=== PATIENT | female | born 1945 | race African-American/Black ===

== ENCOUNTER 2018-04-12 21:33 | Inpatient (IN) | payer MEDICARE, MEDICAID ==
[~2018-04-12] VITALS: Ht 165.1 cm; Wt 147.0 kg
[2018-04-12] MEDS ORDERED: HYDRALAZINE 20MG/ML VIAL IV ONE (23:00)
[2018-04-13] VITALS (80 sets, daily range): BP systolic 100–252; BP diastolic 47–147
[2018-04-13 00:14] LABS: BASOPHILS % 0.4 % (0.0-2.0); HEMATOCRIT. 38.1 % (36.0-48.0); HEMOGLOBIN. 12.4 g/dL (12.0-16.0); MEAN CORPUSCULAR HEMOGLOBIN 26.2 pg (28.0-32.0); MEAN CORPUSCULAR VOLUME 80.8 fL (81.0-99.0); MEAN PLATELET VOLUME 11.2 fl (7.4-10.4); MONOCYTES % 7.3 % (2.0-8.0); NEUTROPHILS % 62.3 % (40.0-76.0); PLATELET 230 x1000/uL (130-400); RED BLOOD CELL COUNT 4.71 mill/uL (4.2-5.4)
[2018-04-13 00:19] LABS: CHLORIDE 112 mEq/L (98-107)
[2018-04-13 00:30] LABS: PARTIAL THROMBOPLASTIN TIME 24.5 sec (23.4-31.0); PROTHROMBIN TIME 9.9 sec (9.1-11.1)
[2018-04-13] MEDS ORDERED: HYDRALAZINE 20MG/ML VIAL IV ONE (00:45)
[2018-04-13] MEDS ORDERED: ASPIRIN 81MG TABLET PO ONE (01:15)
[2018-04-13] MEDS ORDERED: NITROGLYCERIN 50MG PREMIX 250 ML IV ONE (01:45)
[2018-04-13] MEDS ORDERED: NITROGLYCERIN 50MG PREMIX 250 ML IV PRN (06:00)
[2018-04-13 06:03] LABS: BASOPHILS % 0.3 % (0.0-2.0); EOSINOPHILS % 0.2 % (0.0-5.0); HEMATOCRIT. 36.2 % (36.0-48.0); HEMOGLOBIN. 11.8 g/dL (12.0-16.0); LYMPHOCYTES % 15.6 % (20.0-50.0); MEAN CORPUSCULAR VOLUME 80.1 fL (81.0-99.0); MONOCYTES % 5.1 % (2.0-8.0); NEUTROPHILS % 78.8 % (40.0-76.0); PLATELET 199 x1000/uL (130-400); RED BLOOD CELL COUNT 4.52 mill/uL (4.2-5.4); RED CELL DISTRIBUTION WIDTH 15.5 % (11.6-14.6)
[2018-04-13] MEDS ORDERED: POTA15TA11 PO (06:34)
[2018-04-13] MEDS ORDERED: HYDR-4135 PO (06:34)
[2018-04-13] MEDS ORDERED: NIFE90TA34 MT (06:34)
[2018-04-13] MEDS ORDERED: DOCU-272 PO (06:34)
[2018-04-13] MEDS ORDERED: ATOR40TA70 MT (06:34)
[2018-04-13] MEDS ORDERED: VITA1CAP PO (06:34)
[2018-04-13] MEDS ORDERED: LOSA100T14 MT (06:34)
[2018-04-13] MEDS ORDERED: CARV6.2548 MT (06:34)
[2018-04-13] MEDS ORDERED: ASPI-1159 MT (06:34)
[2018-04-13] MEDS ORDERED: BUSP10TA3 PO (06:34)
[2018-04-13] MEDS ORDERED: FURO40TA5 PO (06:34)
[2018-04-13] MEDS: HYDRALAZINE 20MG/ML VIAL IV PRN (07:15)
[2018-04-13] MEDS: NICARDIPINE 40MG/200ML PREMIX 200 ML IV PRN ×4 (07:44→22:19)
[2018-04-13] MEDS ORDERED: ONDANSETRON HCL 4MG/2ML VIAL IV PRN (07:45)
[2018-04-13] MEDS ORDERED: LIDOCAINE HCL 1% 20ML VIAL (Pyxis) INJ ONE (07:54)
[2018-04-13] MEDS ORDERED: SODIUM BICARBONATE 4% (2.4MEQ) 5ML VIAL IV ONE (07:55)
[2018-04-13] MEDS: ASPIRIN 325MG TABLET PO SCH (09:00)
[2018-04-13 10:36] LABS: T4 FREE 0.99 ng/dL (0.76-1.46)
[2018-04-13] MEDS ORDERED: LIDOCAINE HCL/PF 1% 2ML VIAL ONE (13:45)
[2018-04-13 14:27] LABS: BG BASE EXCESS -4.5 mmol/L (-2.0-2.0); BG CARBOXYHEMOGLOBIN 1.1 % (0.5-1.5); BG DEOXYHEMOGLOBIN 5.3 % (0.0-5.0); BG HCO3 ACT 19.7 mmol/L (22.0-26.0); BG METHEMOGLOBIN 0.3 % (0.0-1.5); BG OXYGEN SATURATION 94.6 % (92.0-98.5); BG OXYHEMOGLOBIN 93.3 % (94.0-97.0); BG PCO2 33.6 mmHg (35.0-45.0); BG PH 7.387 (7.350-7.450); BG PO2 74.1 mmHg (75.0-100.0); BG SAMPLE SITE RIGHT RADIAL; BG TOTAL HEMOGLOBIN 12.3 g/dL (12.0-18.0); BG VENT MODE NASAL CANNULA
[2018-04-13] MEDS: ENOXAPARIN 40MG/0.4ML SYR SUBCUT SCH (20:46)
[2018-04-13] MEDS: ATORVASTATIN CALCIUM 40MG TABLET PO SCH (20:46)
[2018-04-14] VITALS (64 sets, daily range): BP systolic 99–187; BP diastolic 56–98
[2018-04-14 00:33] LABS: CREATINE KINASE MB FRACTION 3.3 ng/mL (0.5-3.6)
[2018-04-14] MEDS: NICARDIPINE 40MG/200ML PREMIX 200 ML IV PRN ×3 (02:29→21:09)
[2018-04-14 05:42] LABS: BASOPHILS % 0.4 % (0.0-2.0); EOSINOPHILS % 0.5 % (0.0-5.0); HEMATOCRIT. 35.7 % (36.0-48.0); HEMOGLOBIN. 11.4 g/dL (12.0-16.0); LYMPHOCYTES % 19.7 % (20.0-50.0); MEAN CORPUSCULAR HEMOGLOBIN 25.8 pg (28.0-32.0); MEAN CORPUSCULAR VOLUME 80.7 fL (81.0-99.0); MEAN PLATELET VOLUME 11.2 fl (7.4-10.4); NEUTROPHILS % 71.4 % (40.0-76.0); PLATELET 189 x1000/uL (130-400); RED BLOOD CELL COUNT 4.43 mill/uL (4.2-5.4); RED CELL DISTRIBUTION WIDTH 15.4 % (11.6-14.6)
[2018-04-14 06:16] LABS: CHLORIDE 115 mEq/L (98-107)
[2018-04-14 06:30] LABS: CREATINE KINASE 427 IU/L (26-192); LDL CHOLESTEROL 137 mg/dL (5-100)
[2018-04-14 06:31] LABS: HDL CHOLESTEROL 60 mg/dL (40-59)
[2018-04-14 06:34] LABS: CREATINE KINASE MB FRACTION 3.6 ng/mL (0.5-3.6)
[2018-04-14] MEDS ORDERED: POTASSIUM CHLORIDE INJ 40 MEQ in DEXT 5% WATER 250 ML IV ONE (08:00)
[2018-04-14] MEDS: ENOXAPARIN 40MG/0.4ML SYR SUBCUT SCH ×2 (09:16→21:08)
[2018-04-14] MEDS: ASPIRIN 325MG TABLET PO SCH (09:16)
[2018-04-14] MEDS ORDERED: OMEPRAZOLE 20MG CAPSULE EXTENDED RELEASE PO SCH (10:00)
[2018-04-14] MEDS: KCL 20MEQ/100ML PREMIX 100 ML IV SCH ×2 (11:27→11:38)
[2018-04-14] MEDS: LANSOPRAZOLE 30MG DR CAPSULE GT SCH (11:37)
[2018-04-14] MEDS: HYDRALAZINE 20MG/ML VIAL IV PRN (16:39)
[2018-04-14] MEDS: HYDRALAZINE HCL 50MG TABLET NG SCH (21:09)
[2018-04-14] MEDS: ATORVASTATIN CALCIUM 40MG TABLET PO SCH (21:24)
[2018-04-15] VITALS (89 sets, daily range): BP systolic 114–186; BP diastolic 46–99
[2018-04-15] MEDS: HYDRALAZINE 20MG/ML VIAL IV PRN ×2 (02:29→21:22)
[2018-04-15] MEDS: NICARDIPINE 40MG/200ML PREMIX 200 ML IV PRN ×4 (02:32→21:25)
[2018-04-15 05:29] LABS: BASOPHILS % 0.6 % (0.0-2.0); EOSINOPHILS % 0.6 % (0.0-5.0); HEMATOCRIT. 36.1 % (36.0-48.0); HEMOGLOBIN. 11.5 g/dL (12.0-16.0); LYMPHOCYTES % 19.6 % (20.0-50.0); MEAN CORPUSCULAR HEMOGLOBIN 26.2 pg (28.0-32.0); MEAN CORPUSCULAR VOLUME 82.2 fL (81.0-99.0); MONOCYTES % 6.9 % (2.0-8.0); NEUTROPHILS % 72.3 % (40.0-76.0); RED BLOOD CELL COUNT 4.39 mill/uL (4.2-5.4); RED CELL DISTRIBUTION WIDTH 15.5 % (11.6-14.6)
[2018-04-15 05:32] LABS: CHLORIDE 119 mEq/L (98-107)
[2018-04-15] MEDS: HYDRALAZINE HCL 50MG TABLET NG SCH (05:44)
[2018-04-15] MEDS: ASPIRIN 325MG TABLET PO SCH (08:16)
[2018-04-15] MEDS: LANSOPRAZOLE 30MG DR CAPSULE GT SCH (08:16)
[2018-04-15] MEDS: ENOXAPARIN 40MG/0.4ML SYR SUBCUT SCH (08:16)
[2018-04-15] MEDS ORDERED: GADOBENATE DIMEGLUMINE 529 MG/ML 10ML IV ONE (09:27)
[2018-04-15 10:57] LABS: MEAN PLATELET VOLUME 11.6 fl (7.4-10.4); PLATELET 174 x1000/uL (130-400)
[2018-04-15] MEDS: CLONIDINE 0.1MG TABLET PO SCH ×2 (11:13→21:22)
[2018-04-15 12:54] LABS: CLARITY URINE CLOUDY (CLEAR); COLOR URINE YELLOW (YELLOW); KETONES URINE NEGATIVE (NEGATIVE); LEUKOCYTE ESTERASE URINE 1+ (NEGATIVE); NITRITE URINE NEGATIVE (NEGATIVE); OCCULT BLOOD URINE 2+ (NEGATIVE); PROTEIN URINE 4+ (NEGATIVE); SPECIFIC GRAVITY URINE 1.022 (1.005-1.030)
[2018-04-15] MEDS: HYDRALAZINE HCL 100MG TABLET NG SCH ×2 (13:19→21:22)
[2018-04-15] MEDS ORDERED: BISACODYL 10MG SUPP PR NR (18:09)
[2018-04-15] MEDS ORDERED: BISACODYL 10MG SUPP PR PRN (18:15)
[2018-04-15] MEDS: PANTOPRAZOLE SODIUM 40 MG/VIAL IV SCH (21:21)
[2018-04-15] MEDS: ATORVASTATIN CALCIUM 40MG TABLET PO SCH (21:21)
[2018-04-16] VITALS (103 sets, daily range): BP systolic 119–202; BP diastolic 30–131
[2018-04-16] MEDS: HYDRALAZINE 20MG/ML VIAL IV PRN (03:28)
[2018-04-16] MEDS: NICARDIPINE 40MG/200ML PREMIX 200 ML IV PRN ×3 (04:46→14:25)
[2018-04-16 05:41] LABS: BASOPHILS % 0.5 % (0.0-2.0); EOSINOPHILS % 0.4 % (0.0-5.0); HEMATOCRIT. 34.8 % (36.0-48.0); HEMOGLOBIN. 11.2 g/dL (12.0-16.0); LYMPHOCYTES % 23.4 % (20.0-50.0); MEAN CORPUSCULAR HEMOGLOBIN 25.9 pg (28.0-32.0); MEAN CORPUSCULAR VOLUME 80.8 fL (81.0-99.0); MEAN PLATELET VOLUME 11.5 fl (7.4-10.4); MONOCYTES % 8.5 % (2.0-8.0); NEUTROPHILS % 67.2 % (40.0-76.0); PLATELET 185 x1000/uL (130-400); RED BLOOD CELL COUNT 4.31 mill/uL (4.2-5.4); RED CELL DISTRIBUTION WIDTH 15.5 % (11.6-14.6)
[2018-04-16] MEDS: HYDRALAZINE HCL 100MG TABLET NG SCH ×3 (05:59→22:35)
[2018-04-16 06:46] LABS: PARTIAL THROMBOPLASTIN TIME 27.5 sec (23.4-31.0); PROTHROMBIN TIME 10.4 sec (9.1-11.1)
[2018-04-16] MEDS ORDERED: LEVOFLOXACIN 500MG PREMIX 100 ML IV NR (08:00)
[2018-04-16] MEDS: PANTOPRAZOLE SODIUM 40 MG/VIAL IV SCH ×2 (08:11→21:42)
[2018-04-16] MEDS: CLONIDINE 0.1MG TABLET PO SCH (08:12)
[2018-04-16] MEDS ORDERED: BISACODYL 10MG SUPP PR NR (09:00)
[2018-04-16] MEDS ORDERED: INSULIN LISPRO 100 UNITS/ML SUBCUT SCH (09:15)
[2018-04-16] MEDS ORDERED: BLOOD SUGAR DIAGNOSTIC STRIP TEST SCH (09:15)
[2018-04-16] MEDS ORDERED: DEXTROSE 50% WATER 50ML SYRINGE IV PRN (09:15)
[2018-04-16] MEDS: DEXTROSE 5% WATER 1,000 ML IV SCH (10:30)
[2018-04-16] MEDS: BLOOD SUGAR DIAGNOSTIC STRIP TEST SCH ×2 (12:00→18:26)
[2018-04-16] MEDS: INSULIN LISPRO 100 UNITS/ML SUBCUT SCH ×2 (12:00→18:00)
[2018-04-16] MEDS ORDERED: MIDAZOLAM HCL 5 MG/5 ML VIAL ONE (12:05)
[2018-04-16] MEDS ORDERED: FENTANYL CITRATE/PF 50MCG/ML 2ML VIAL ONE (12:06)
[2018-04-16] MEDS ORDERED: FLUCONAZOLE 100MG/50ML PREMIX IV ONE (12:45)
[2018-04-16] MEDS ORDERED: ENOXAPARIN 40MG/0.4ML SYR SUBCUT NR (13:15)
[2018-04-16] MEDS: CEFTRIAXONE 1 G PREMIX 50 ML IV SCH (14:25)
[2018-04-16] MEDS ORDERED: FLUCONAZOLE 100MG/50ML in BAG IV NR (15:00)
[2018-04-16] MEDS: CLONIDINE 0.2MG TABLET PO SCH (21:30)
[2018-04-16] MEDS: ATORVASTATIN CALCIUM 40MG TABLET PO SCH (21:30)
[2018-04-17] VITALS (94 sets, daily range): BP systolic 116–191; BP diastolic 35–131
[2018-04-17] MEDS: BLOOD SUGAR DIAGNOSTIC STRIP TEST SCH ×5 (00:30→23:47)
[2018-04-17] MEDS: INSULIN LISPRO 100 UNITS/ML SUBCUT SCH ×4 (00:34→17:02)
[2018-04-17] MEDS: DEXTROSE 5% WATER 1,000 ML IV SCH ×2 (02:01→17:31)
[2018-04-17] MEDS: HYDRALAZINE HCL 100MG TABLET NG SCH ×3 (06:59→21:48)
[2018-04-17 07:53] LABS: BASOPHILS % 0.5 % (0.0-2.0); EOSINOPHILS % 0.8 % (0.0-5.0); HEMATOCRIT. 33.7 % (36.0-48.0); HEMOGLOBIN. 10.9 g/dL (12.0-16.0); LYMPHOCYTES % 18.2 % (20.0-50.0); MEAN CORPUSCULAR HEMOGLOBIN 26.1 pg (28.0-32.0); MEAN CORPUSCULAR VOLUME 80.9 fL (81.0-99.0); MEAN PLATELET VOLUME 11.5 fl (7.4-10.4); MONOCYTES % 8.4 % (2.0-8.0); NEUTROPHILS % 72.1 % (40.0-76.0); PLATELET 178 x1000/uL (130-400); RED BLOOD CELL COUNT 4.17 mill/uL (4.2-5.4); RED CELL DISTRIBUTION WIDTH 15.4 % (11.6-14.6)
[2018-04-17] MEDS: CLONIDINE 0.2MG TABLET PO SCH ×2 (08:21→08:35)
[2018-04-17] MEDS: LOSARTAN POTASSIUM 25 MG TABLET PO SCH (08:51)
[2018-04-17] MEDS: AMLODIPINE 10MG TABLET PO SCH (08:51)
[2018-04-17] MEDS: CLONIDINE 0.1MG TABLET PO SCH ×2 (08:51→21:03)
[2018-04-17] MEDS ORDERED: SODIUM CHLORIDE 0.9% 10ML VIAL ONE (11:43)
[2018-04-17] MEDS ORDERED: LEVOFLOXACIN 500MG PREMIX 100 ML IV SCH (12:00)
[2018-04-17] MEDS: NICARDIPINE 40MG/200ML PREMIX 200 ML IV PRN ×3 (12:18→22:55)
[2018-04-17] MEDS: CEFTRIAXONE 1 G PREMIX 50 ML IV SCH (13:27)
[2018-04-17] MEDS ORDERED: FENTANYL CITRATE/PF 50MCG/ML 2ML VIAL ONE (13:31)
[2018-04-17] MEDS ORDERED: MIDAZOLAM HCL 5 MG/5 ML VIAL ONE (13:31)
[2018-04-17] MEDS ORDERED: MIDAZOLAM HCL 5 MG/5 ML VIAL IV PRN (14:28)
[2018-04-17] MEDS ORDERED: FENTANYL CITRATE/PF 50MCG/ML 2ML VIAL IV PRN (14:29)
[2018-04-17] MEDS: HYDROMORPHONE HCL/PF 2MG/ML CPJ IV PRN ×2 (16:28→20:31)
[2018-04-17] MEDS: HYDRALAZINE 20MG/ML VIAL IV PRN (18:26)
[2018-04-17] MEDS: ATORVASTATIN CALCIUM 40MG TABLET PO SCH (21:03)
[2018-04-17] MEDS ORDERED: HYDROMORPHONE HCL/PF 2MG/ML CPJ IV PRN (21:45)
[2018-04-18] VITALS (65 sets, daily range): BP systolic 132–201; BP diastolic 43–158
[2018-04-18] MEDS: NICARDIPINE 40MG/200ML PREMIX 200 ML IV PRN ×2 (03:48→21:23)
[2018-04-18] MEDS: BLOOD SUGAR DIAGNOSTIC STRIP TEST SCH ×4 (05:25→23:34)
[2018-04-18] MEDS: HYDRALAZINE HCL 100MG TABLET NG SCH ×3 (05:26→21:19)
[2018-04-18 05:50] LABS: PARTIAL THROMBOPLASTIN TIME 21.3 sec (23.4-31.0); PROTHROMBIN TIME 10.1 sec (9.1-11.1)
[2018-04-18] MEDS: INSULIN LISPRO 100 UNITS/ML SUBCUT SCH ×5 (06:00→23:34)
[2018-04-18] MEDS: AMLODIPINE 10MG TABLET PO SCH (09:00)
[2018-04-18] MEDS: CLONIDINE 0.1MG TABLET PO SCH (09:00)
[2018-04-18] MEDS: LOSARTAN POTASSIUM 25 MG TABLET PO SCH (09:00)
[2018-04-18 10:45] LABS: BASOPHILS % 0.3 % (0.0-2.0); EOSINOPHILS % 0.7 % (0.0-5.0); HEMATOCRIT. 34.6 % (36.0-48.0); HEMOGLOBIN. 11.3 g/dL (12.0-16.0); LYMPHOCYTES % 14.2 % (20.0-50.0); MEAN CORPUSCULAR HEMOGLOBIN 26.5 pg (28.0-32.0); MEAN CORPUSCULAR VOLUME 80.7 fL (81.0-99.0); MEAN PLATELET VOLUME 11.7 fl (7.4-10.4); MONOCYTES % 6.5 % (2.0-8.0); NEUTROPHILS % 78.3 % (40.0-76.0); PLATELET 165 x1000/uL (130-400); RED BLOOD CELL COUNT 4.28 mill/uL (4.2-5.4); RED CELL DISTRIBUTION WIDTH 15.5 % (11.6-14.6)
[2018-04-18] MEDS ORDERED: PAPAVERINE HCL 30 MG/ML 2ML IV ONE (11:49)
[2018-04-18] MEDS ORDERED: THROMBIN (BOVINE) 5000 UNITS/VIAL TOP ONE (11:50)
[2018-04-18] MEDS ORDERED: BACITRACIN ZINC 15GM TUBE TOP ONE (11:50)
[2018-04-18] MEDS ORDERED: BUPIVACAINE HCL/PF 0.5% (5MG/ML) 10ML ONE (11:50)
[2018-04-18] MEDS ORDERED: HEPARIN SODIUM 1,000 UNIT/1ML VIAL IV ONE (11:50)
[2018-04-18] MEDS ORDERED: NORMAL SALINE 0.9% 10 ML SYR ONE (11:50)
[2018-04-18] MEDS ORDERED: LIDOCAINE HCL/PF 1% 10 MG/ML 5ML VIAL ONE (11:51)
[2018-04-18] MEDS ORDERED: BACITRACIN 50,000 UNITS/VIAL ONE (11:51)
[2018-04-18] MEDS ORDERED: GELATIN SPONGE,COMPRESSED SZ 100 ONE (11:51)
[2018-04-18] MEDS: DEXTROSE 5% WATER 1,000 ML IV SCH (12:00)
[2018-04-18] MEDS: CEFTRIAXONE 1 G PREMIX 50 ML IV SCH (17:35)
[2018-04-18] MEDS: ATORVASTATIN CALCIUM 40MG TABLET PO SCH (21:19)
[2018-04-19] VITALS (61 sets, daily range): BP systolic 131–195; BP diastolic 44–137
[2018-04-19] MEDS: NICARDIPINE 40MG/200ML PREMIX 200 ML IV PRN ×3 (01:59→10:45)
[2018-04-19] MEDS: DEXTROSE 5% WATER 1,000 ML IV SCH (06:07)
[2018-04-19] MEDS: BLOOD SUGAR DIAGNOSTIC STRIP TEST SCH ×3 (06:24→18:00)
[2018-04-19] MEDS: INSULIN LISPRO 100 UNITS/ML SUBCUT SCH ×3 (06:38→18:00)
[2018-04-19] MEDS: HYDRALAZINE HCL 100MG TABLET NG SCH ×3 (06:38→22:00)
[2018-04-19] MEDS: AMLODIPINE 10MG TABLET PO SCH (08:53)
[2018-04-19] MEDS: ENOXAPARIN 40MG/0.4ML SYR SUBCUT SCH ×2 (08:58→22:00)
[2018-04-19] MEDS ORDERED: ASPIRIN 325MG EC TABLET PO SCH (09:00)
[2018-04-19] MEDS ORDERED: CLONIDINE 0.1MG TABLET PO SCH (09:00)
[2018-04-19] MEDS: LOSARTAN POTASSIUM 25 MG TABLET PO SCH (09:42)
[2018-04-19] MEDS: HYDRALAZINE 20MG/ML VIAL IV PRN (09:43)
[2018-04-19 12:48] LABS: HEMATOCRIT 34.3 % (36.0-48.0); HEMOGLOBIN 11.2 g/dL (12.0-16.0); MEAN CORPUSCULAR HEMOGLOBIN 26.4 pg (28.0-32.0); MEAN CORPUSCULAR VOLUME 80.7 fL (81.0-99.0); PLATELET 176 x1000/uL (130-400); RED BLOOD CELL COUNT 4.25 mill/uL (4.2-5.4); RED CELL DISTRIBUTION WIDTH 15.6 % (11.6-14.6)
[2018-04-19] MEDS ORDERED: CLONIDINE 0.2MG TABLET PO NR (14:00)
[2018-04-19] MEDS: CEFTRIAXONE 1 G PREMIX 50 ML IV SCH (14:13)
[2018-04-19] MEDS: CLONIDINE 0.2MG TABLET PO SCH (16:37)
[2018-04-19] MEDS: ATORVASTATIN CALCIUM 40MG TABLET PO SCH (22:00)
[2018-04-20] VITALS: BP 163/72
[2018-04-20] MEDS: BLOOD SUGAR DIAGNOSTIC STRIP TEST SCH ×4 (00:38→17:54)
[2018-04-20 04:00] VITALS: BP 154/86
[2018-04-20] MEDS: INSULIN LISPRO 100 UNITS/ML SUBCUT SCH ×4 (06:00→17:55)
[2018-04-20] MEDS: HYDRALAZINE HCL 100MG TABLET NG SCH ×3 (06:06→21:33)
[2018-04-20 07:36] LABS: BASOPHILS % 0.5 % (0.0-2.0); EOSINOPHILS % 2.5 % (0.0-5.0); HEMATOCRIT. 32.6 % (36.0-48.0); HEMOGLOBIN. 10.7 g/dL (12.0-16.0); LYMPHOCYTES % 26.6 % (20.0-50.0); MEAN CORPUSCULAR HEMOGLOBIN 26.3 pg (28.0-32.0); MEAN CORPUSCULAR VOLUME 80.1 fL (81.0-99.0); MEAN PLATELET VOLUME 11.2 fl (7.4-10.4); MONOCYTES % 9.4 % (2.0-8.0); PLATELET 158 x1000/uL (130-400); RED BLOOD CELL COUNT 4.07 mill/uL (4.2-5.4); RED CELL DISTRIBUTION WIDTH 15.1 % (11.6-14.6)
[2018-04-20 07:49] LABS: PARTIAL THROMBOPLASTIN TIME 29.2 sec (23.4-31.0)
[2018-04-20 08:00] VITALS: BP 161/77
[2018-04-20] MEDS: CLONIDINE 0.2MG TABLET PO SCH ×4 (08:28→17:53)
[2018-04-20] MEDS: AMLODIPINE 10MG TABLET PO SCH (08:28)
[2018-04-20] MEDS: LOSARTAN POTASSIUM 25 MG TABLET PO SCH (08:28)
[2018-04-20 12:00] VITALS: BP 167/72
[2018-04-20] MEDS: CEFTRIAXONE 1 G PREMIX 50 ML IV SCH (14:16)
[2018-04-20 15:45] LABS: TOTAL IRON BINDING CAPACITY 190 ug/dL (250-450)
[2018-04-20 16:00] VITALS: BP 151/73
[2018-04-20 16:02] LABS: FOLIC ACID (FOLATE) SERUM 7.6 ng/mL (>5.38)
[2018-04-20 20:00] VITALS: BP 164/76
[2018-04-20] MEDS: ATORVASTATIN CALCIUM 40MG TABLET PO SCH (21:33)
[2018-04-21] VITALS (8 sets, daily range): BP systolic 148–176; BP diastolic 76–93
[2018-04-21] MEDS: HYDRALAZINE HCL 100MG TABLET NG SCH ×2 (07:02→14:55)
[2018-04-21] MEDS: BLOOD SUGAR DIAGNOSTIC STRIP TEST SCH ×4 (07:03→17:51)
[2018-04-21] MEDS: INSULIN LISPRO 100 UNITS/ML SUBCUT SCH ×4 (07:03→17:55)
[2018-04-21 07:05] LABS: BASOPHILS % 0.7 % (0.0-2.0); EOSINOPHILS % 2.1 % (0.0-5.0); HEMATOCRIT. 31.8 % (36.0-48.0); HEMOGLOBIN. 10.5 g/dL (12.0-16.0); MEAN CORPUSCULAR HEMOGLOBIN 26.8 pg (28.0-32.0); MEAN CORPUSCULAR VOLUME 80.9 fL (81.0-99.0); MEAN PLATELET VOLUME 11.6 fl (7.4-10.4); MONOCYTES % 10.4 % (2.0-8.0); NEUTROPHILS % 56.8 % (40.0-76.0); PLATELET 154 x1000/uL (130-400); RED BLOOD CELL COUNT 3.92 mill/uL (4.2-5.4); RED CELL DISTRIBUTION WIDTH 15.2 % (11.6-14.6)
[2018-04-21 07:11] LABS: CHLORIDE 114 mEq/L (98-107)
[2018-04-21 07:22] LABS: PHOSPHORUS 3.6 mg/dL (2.5-4.9)
[2018-04-21] MEDS: LOSARTAN POTASSIUM 25 MG TABLET PO SCH (08:42)
[2018-04-21] MEDS: AMLODIPINE 10MG TABLET PO SCH (08:42)
[2018-04-21] MEDS: CLONIDINE 0.2MG TABLET PO SCH ×3 (08:42→16:26)
[2018-04-21] MEDS: CEFTRIAXONE 1 G PREMIX 50 ML IV SCH (14:56)
[2018-04-21] MEDS ORDERED: BISACODYL 5MG TABLET PO NR (15:39)
[2018-04-21] MEDS: DOCUSATE SODIUM SUGAR FREE 100MG/10ML UDC NG SCH (16:25)
[2018-04-21] MEDS: PANTOPRAZOLE 40MG DR TABLET PO SCH (16:25)
[2018-04-21] MEDS ORDERED: LOSA25TA3 PO (21:47)
[2018-04-21] MEDS ORDERED: MINO2.5T19 PO (21:47)
[2018-04-21] MEDS ORDERED: DOCU50LI14 NG (21:47)
[2018-04-21] MEDS ORDERED: HYDR100T26 NG (21:47)
[2018-04-21] MEDS ORDERED: AMLO10TA80 PO (21:47)
[2018-04-21] MEDS ORDERED: PANT40TA4 PO (21:47)
[2018-04-21] MEDS ORDERED: LIP40 PO (21:47)
[2018-04-21] MEDS: ATORVASTATIN CALCIUM 40MG TABLET PO SCH (21:51)
[2018-04-21] MEDS: MINOXIDIL 2.5MG TABLET PO SCH (21:51)
[2018-04-22] VITALS (7 sets, daily range): BP systolic 148–198; BP diastolic 77–96
[2018-04-22] MEDS ORDERED: CLONIDINE 0.2MG TABLET PO SCH (06:00)
[2018-04-22] MEDS: INSULIN LISPRO 100 UNITS/ML SUBCUT SCH ×4 (06:00→17:50)
[2018-04-22] MEDS: BLOOD SUGAR DIAGNOSTIC STRIP TEST SCH ×4 (06:00→17:50)
[2018-04-22] MEDS: PANTOPRAZOLE 40MG DR TABLET PO SCH (06:41)
[2018-04-22] MEDS: HYDRALAZINE HCL 100MG TABLET NG SCH ×2 (06:41→17:49)
[2018-04-22 06:53] LABS: BASOPHILS % 0.6 % (0.0-2.0); EOSINOPHILS % 3.4 % (0.0-5.0); HEMOGLOBIN. 10.5 g/dL (12.0-16.0); LYMPHOCYTES % 29.6 % (20.0-50.0); MEAN CORPUSCULAR HEMOGLOBIN 26.4 pg (28.0-32.0); MEAN CORPUSCULAR VOLUME 80.3 fL (81.0-99.0); MEAN PLATELET VOLUME 11.8 fl (7.4-10.4); MONOCYTES % 9.4 % (2.0-8.0); PLATELET 164 x1000/uL (130-400); RED BLOOD CELL COUNT 3.98 mill/uL (4.2-5.4)
[2018-04-22 07:13] LABS: PHOSPHORUS 3.5 mg/dL (2.5-4.9)
[2018-04-22] MEDS: MINOXIDIL 2.5MG TABLET PO SCH ×2 (08:46→21:27)
[2018-04-22] MEDS ORDERED: ASPI-986 MT (08:46)
[2018-04-22] MEDS: LOSARTAN POTASSIUM 25 MG TABLET PO SCH (08:46)
[2018-04-22] MEDS: AMLODIPINE 10MG TABLET PO SCH (08:46)
[2018-04-22] MEDS: DOCUSATE SODIUM SUGAR FREE 100MG/10ML UDC NG SCH (08:46)
[2018-04-22] MEDS ORDERED: CLON0.2T12 PO (08:48)
[2018-04-22] MEDS: HYDRALAZINE 20MG/ML VIAL IV PRN ×3 (11:08→23:22)
[2018-04-22] MEDS: BISACODYL 10MG SUPP PR SCH ×2 (13:15→14:06)
[2018-04-22] MEDS: CEFTRIAXONE 1 G PREMIX 50 ML IV SCH (14:05)
[2018-04-22] MEDS ORDERED: DEXTROSE 5% WATER 1,000 ML IV SCH (14:30)
[2018-04-22] MEDS ORDERED: MINO2.5T19 PO (15:14)
[2018-04-22] MEDS ORDERED: HYDR-4134 MT (15:15)
[2018-04-22] MEDS ORDERED: CLON0.1T PO (15:22)
[2018-04-22] MEDS ORDERED: CLONIDINE 0.1MG TABLET PO SCH (17:45)
[2018-04-22] MEDS: ATORVASTATIN CALCIUM 40MG TABLET PO SCH (21:26)
[2018-04-23] VITALS: BP 148/66
[2018-04-23] MEDS: BLOOD SUGAR DIAGNOSTIC STRIP TEST SCH ×2 (01:00→06:14)
[2018-04-23] MEDS: INSULIN LISPRO 100 UNITS/ML SUBCUT SCH ×2 (01:32→06:26)
[2018-04-23 02:16] LABS: HEPATITIS B SURFACE AB < 3.1 mIU/mL
[2018-04-23 02:55] LABS: HEPATITIS B CORE AB IGM NEGATIVE
[2018-04-23 04:00] VITALS: BP 138/82
[2018-04-23] MEDS: PANTOPRAZOLE 40MG DR TABLET PO SCH (06:13)
[2018-04-23] MEDS: HYDRALAZINE HCL 100MG TABLET NG SCH (06:14)
[2018-04-23 07:16] LABS: BASOPHILS % 0.8 % (0.0-2.0); EOSINOPHILS % 2.3 % (0.0-5.0); HEMATOCRIT. 32.3 % (36.0-48.0); HEMOGLOBIN. 10.6 g/dL (12.0-16.0); LYMPHOCYTES % 24.4 % (20.0-50.0); MEAN CORPUSCULAR HEMOGLOBIN 26.3 pg (28.0-32.0); MEAN CORPUSCULAR VOLUME 80.4 fL (81.0-99.0); MEAN PLATELET VOLUME 11.7 fl (7.4-10.4); MONOCYTES % 10.1 % (2.0-8.0); NEUTROPHILS % 62.4 % (40.0-76.0); PLATELET 156 x1000/uL (130-400); RED BLOOD CELL COUNT 4.01 mill/uL (4.2-5.4)
[2018-04-23 08:00] VITALS: BP 177/87
[2018-04-23] MEDS ORDERED: CLONIDINE 0.2MG TABLET PO SCH (09:00)
[2018-04-23] MEDS: DOCUSATE SODIUM SUGAR FREE 100MG/10ML UDC NG SCH (09:00)
[2018-04-23] MEDS: AMLODIPINE 10MG TABLET PO SCH (09:27)
[2018-04-23] MEDS: LOSARTAN POTASSIUM 25 MG TABLET PO SCH (09:27)
[2018-04-23] MEDS: MINOXIDIL 2.5MG TABLET PO SCH (09:29)
[2018-04-23 09:49] VITALS: BP 157/87
[2018-04-23 10:00] VITALS: BP 131/76
[2018-04-24 09:06] LABS: HIV SCREEN 4G Non Reactive (Non Reactive)
[2018-04-25 04:15] LABS: ANTI-NUCLEAR ANTIBODIES DIRECT Negative (Negative)
== END 2018-04-23 11:50 | DRG 64 ==
LOC: ER 21:33 → CVICU 04-13 01:42 → EDBEDREQTM 04-13 01:45 → EDBEDREQ 04-13 01:45 → EDBEDREQSVC 04-13 01:45 → ENRESERV 04-13 03:19 → 5WST 04-19 17:07
PROVIDERS: ADMIT Family Medicine; ATTEND Family Medicine
PROC: 05HY33Z Insertion of Infusion Device into Upper Vein, Percutaneous Approach (ICD-10-PCS; 2018-04-13)
PROC: B54MZZZ Ultrasonography of Right Upper Extremity Veins (ICD-10-PCS; 2018-04-13)
PROC: 0DH63UZ Insertion of Feeding Device into Stomach, Percutaneous Approach (ICD-10-PCS; principal; 2018-04-17 13:30)
DX: I63.9 Cerebral infarction, unspecified (principal); E43 Unspecified severe protein-calorie malnutrition; I13.0 Hypertensive heart and chronic kidney disease with heart failure and stage 1 through stage 4 chronic kidney disease, or unspecified chronic kidney disease; E87.0 Hyperosmolality and hypernatremia; I50.32 Chronic diastolic (congestive) heart failure; N17.9 Acute kidney failure, unspecified; Z68.42 Body mass index [BMI] 45.0-49.9, adult; E78.5 Hyperlipidemia, unspecified; E11.65 Type 2 diabetes mellitus with hyperglycemia; E87.6 Hypokalemia; R13.12 Dysphagia, oropharyngeal phase; E11.22 Type 2 diabetes mellitus with diabetic chronic kidney disease; F32.9 Major depressive disorder, single episode, unspecified; E53.8 Deficiency of other specified B group vitamins; D50.9 Iron deficiency anemia, unspecified; E66.01 Morbid (severe) obesity due to excess calories; E78.00 Pure hypercholesterolemia, unspecified; I65.22 Occlusion and stenosis of left carotid artery; K59.00 Constipation, unspecified; M19.90 Unspecified osteoarthritis, unspecified site; N18.9 Chronic kidney disease, unspecified; Z53.9 Procedure and treatment not carried out, unspecified reason; Z88.0 Allergy status to penicillin; Z82.49 Family history of ischemic heart disease and other diseases of the circulatory system; Z79.899 Other long term (current) drug therapy; Z79.82 Long term (current) use of aspirin; Z98.891 History of uterine scar from previous surgery
CPT/HCPCS: 36415; 36569; 36600; 70450; 70544; 70547; 70551; 71045; 74018; 76770; 76937; 80048; 80053; 80061; 81003; 82375; 82550; 82553; 82570; 82607; 82728; 82746; 82805; 82962; 83036; 83540; 83550; 83735; 83880; 84100; 84134; 84156; 84300; 84439; 84443; 84484; 85025; 85027; 85379; 85610; 85730; 86038; 86705; 86706; 86803; 87077; 87086; 87106; 87186; 87389; 92610; 93005; 93306; 93880; 93970; 96365; 96375; 97110; 97162; 97166; 97530; 99291; A4216; A6261; A9577; C1725; C9113; J0360; J0696; J1170; J1450; J1644; J1650; J1815; J1956; J2250; J2440; J3010; J3480; J3490; J7040; J7070; A4315

== ENCOUNTER 2018-10-25 18:11 | Inpatient (IN) | payer MEDICARE, MEDICAID ==
[~2018-10-25] VITALS: Ht 165.1 cm; Wt 134.4 kg
[~2018-10-25 18:11] MED LIST: AMLO10TA80 PO; ASPI-1159 MT; ASPI-986 MT; ATOR40TA70 MT; BUSP10TA3 PO; CARV6.2548 MT; CLON0.1T PO; DOCU-272 PO; DOCU50LI14 NG; FURO40TA5 PO; HYDR-4134 MT; HYDR-4135 PO; HYDR100T26 NG; LIP40 PO; LOSA100T14 MT; LOSA25TA3 PO; MINO2.5T19 PO; NIFE90TA34 MT; PANT40TA4 PO; POTA15TA11 PO; VITA1CAP PO
[2018-10-25] MEDS ORDERED: ONDANSETRON HCL 4MG/2ML INJ IV ONE (19:45)
[2018-10-25] MEDS ORDERED: DILTIAZEM HCL 30MG TABLET PO ONE (19:45)
[2018-10-25] MEDS ORDERED: CLONIDINE 0.1MG TABLET PO ONE (19:45)
[2018-10-25] MEDS ORDERED: FUROSEMIDE 40MG/4ML VIAL IVP ONE (19:45)
[2018-10-25] MEDS ORDERED: LABETALOL 5MG/ML SYR 20 MG/4 ML SYRINGE IV ONE ×2 (21:30→22:45)
[2018-10-25 22:16] LABS: BASOPHILS % 0.5 % (0.0-2.0); HEMATOCRIT. 30.6 % (36.0-48.0); HEMOGLOBIN. 9.8 g/dL (12.0-16.0); MEAN CORPUSCULAR HEMOGLOBIN 25.5 pg (28.0-32.0); MEAN CORPUSCULAR VOLUME 79.5 fL (81.0-99.0); MEAN PLATELET VOLUME 10.5 fl (7.4-10.4); MONOCYTES % 6.3 % (2.0-8.0); NEUTROPHILS % 67.2 % (40.0-76.0); PLATELET 264 x1000/uL (130-400); RED BLOOD CELL COUNT 3.85 mill/uL (4.2-5.4); RED CELL DISTRIBUTION WIDTH 16.5 % (11.6-14.6)
[2018-10-25 22:18] LABS: CHLORIDE 102 mEq/L (98-107)
[2018-10-26] MEDS ORDERED: ACETAMINOPHEN 325MG TABLET PEG PRN (02:45)
[2018-10-26] MEDS ORDERED: IPRATROPIUM/ALBUTEROL 0.5-3(2.5)MG/3ML NEB INH PRN (02:45)
[2018-10-26] MEDS ORDERED: CLONIDINE 0.1MG TABLET GT PRN (03:00)
[2018-10-26] MEDS: HYDRALAZINE HCL 100MG TABLET PEG SCH ×2 (06:00→21:16)
[2018-10-26] MEDS: MINOXIDIL 2.5MG TABLET PEG SCH ×2 (06:00→21:00)
[2018-10-26] MEDS ORDERED: ASPIRIN 81MG TABLET PO SCH (07:30)
[2018-10-26] MEDS: PEG GT SCH ×2 (07:50→21:00)
[2018-10-26] MEDS: LOSARTAN POTASSIUM 100 MG TABLET PEG SCH (09:00)
[2018-10-26] MEDS ORDERED: ENOXAPARIN 40MG/0.4ML SYR SUBCUT SCH (09:00)
[2018-10-26] MEDS ORDERED: NIFEDIPINE XL 90MG TAB PO SCH (09:00)
[2018-10-26] MEDS: CARVEDILOL 6.25 MG TABLET PEG SCH ×2 (09:41→21:00)
[2018-10-26] MEDS: DOCUSATE SODIUM SUGAR FREE 100MG/10ML UDC PEG SCH (09:41)
[2018-10-26] MEDS: POTASSIUM CHLORIDE 20MEQ TABLET SR PO SCH (09:41)
[2018-10-26] MEDS: AMLODIPINE 10MG TABLET PEG SCH (13:00)
[2018-10-26 18:59] VITALS: BP 151/82
[2018-10-26 20:00] VITALS: BP 166/90
[2018-10-26] MEDS: CLONIDINE 0.1MG TABLET PEG SCH (20:59)
[2018-10-26] MEDS ORDERED: ATORVASTATIN CALCIUM 40MG TABLET PO SCH (21:00)
[2018-10-26] MEDS: ATORVASTATIN CALCIUM 40MG TABLET PEG SCH (21:16)
[2018-10-26] MEDS: SODIUM CHLORIDE 0.9% INJ 3ML FLUSH IVF SCH (21:17)
[2018-10-26] MEDS: ENOXAPARIN 30MG/0.3ML SYR SUBCUT SCH (21:17)
[2018-10-26 22:00] VITALS: BP 166/90
[2018-10-27] VITALS: BP 110/50
[2018-10-27 04:00] VITALS: BP 105/63
[2018-10-27] MEDS: HYDRALAZINE HCL 100MG TABLET PEG SCH ×3 (05:40→21:14)
[2018-10-27] MEDS: MINOXIDIL 2.5MG TABLET PEG SCH ×2 (05:40→17:17)
[2018-10-27] MEDS: PEG GT SCH ×2 (06:27→21:14)
[2018-10-27] MEDS: SODIUM CHLORIDE 0.9% INJ 3ML FLUSH IVF SCH ×3 (06:27→21:14)
[2018-10-27 08:00] VITALS: BP 104/47
[2018-10-27] MEDS: CLONIDINE 0.1MG TABLET PEG SCH ×2 (09:00→20:54)
[2018-10-27] MEDS: LOSARTAN POTASSIUM 100 MG TABLET PEG SCH (09:00)
[2018-10-27 09:07] LABS: CHLORIDE 105 mEq/L (98-107)
[2018-10-27 09:19] LABS: TOTAL IRON BINDING CAPACITY 194 ug/dL (250-450)
[2018-10-27] MEDS: DOCUSATE SODIUM SUGAR FREE 100MG/10ML UDC PEG SCH (11:15)
[2018-10-27] MEDS: ENOXAPARIN 30MG/0.3ML SYR SUBCUT SCH (11:16)
[2018-10-27] MEDS: CARVEDILOL 6.25 MG TABLET PEG SCH ×2 (11:17→20:55)
[2018-10-27] MEDS: POTASSIUM CHLORIDE 20MEQ TABLET SR PO SCH (11:17)
[2018-10-27] MEDS: AMLODIPINE 10MG TABLET PEG SCH (11:18)
[2018-10-27] MEDS: FUROSEMIDE 40MG/4ML VIAL IVP SCH ×2 (11:18→12:06)
[2018-10-27] MEDS ORDERED: SODIUM CHLORIDE 0.9% 250 ML IV ONE (11:30)
[2018-10-27 12:00] VITALS: BP 106/57
[2018-10-27] MEDS ORDERED: IPRATROPIUM/ALBUTEROL 0.5-3(2.5)MG/3ML NEB HHN PRN (13:00)
[2018-10-27] MEDS: FERROUS SULFATE 325MG TABLET PO SCH ×2 (15:15→17:31)
[2018-10-27 16:00] VITALS: BP 102/51
[2018-10-27 18:16] LABS: INR 1.1; PROTHROMBIN TIME 11.2 sec (9.1-11.1)
[2018-10-27 20:00] VITALS: BP 107/56
[2018-10-27] MEDS: ATORVASTATIN CALCIUM 40MG TABLET PEG SCH (21:14)
[2018-10-28] VITALS: BP 123/54
[2018-10-28] MEDS: IPRATROPIUM/ALBUTEROL 0.5-3(2.5)MG/3ML NEB HHN SCH ×4 (02:54→20:41)
[2018-10-28 04:00] VITALS: BP 140/78
[2018-10-28] MEDS: MINOXIDIL 2.5MG TABLET PEG SCH ×2 (05:34→18:25)
[2018-10-28] MEDS: SODIUM CHLORIDE 0.9% INJ 3ML FLUSH IVF SCH ×3 (05:34→21:36)
[2018-10-28] MEDS: HYDRALAZINE HCL 100MG TABLET PEG SCH ×3 (05:35→21:35)
[2018-10-28] MEDS: PEG GT SCH ×2 (06:21→21:34)
[2018-10-28] MEDS: LOSARTAN POTASSIUM 100 MG TABLET PEG SCH (08:35)
[2018-10-28] MEDS: CLONIDINE 0.1MG TABLET PEG SCH ×2 (08:35→21:00)
[2018-10-28] MEDS: CARVEDILOL 6.25 MG TABLET PEG SCH ×2 (08:36→21:35)
[2018-10-28] MEDS: AMLODIPINE 10MG TABLET PEG SCH (08:37)
[2018-10-28] MEDS: FERROUS SULFATE 325MG TABLET PO SCH ×3 (09:42→18:25)
[2018-10-28] MEDS: DOCUSATE SODIUM SUGAR FREE 100MG/10ML UDC PEG SCH (09:42)
[2018-10-28] MEDS: FUROSEMIDE 40MG/4ML VIAL IVP SCH (09:42)
[2018-10-28] MEDS: POTASSIUM CHLORIDE 20MEQ TABLET SR PO SCH (09:42)
[2018-10-28 12:00] VITALS: BP 138/69
[2018-10-28 16:00] VITALS: BP 156/66
[2018-10-28 20:00] VITALS: BP 107/70
[2018-10-28] MEDS: ATORVASTATIN CALCIUM 40MG TABLET PEG SCH (21:34)
[2018-10-29] VITALS: BP 117/70
[2018-10-29] MEDS: IPRATROPIUM/ALBUTEROL 0.5-3(2.5)MG/3ML NEB HHN SCH ×4 (03:29→20:22)
[2018-10-29 04:00] VITALS: BP 115/75
[2018-10-29] MEDS: SODIUM CHLORIDE 0.9% INJ 3ML FLUSH IVF SCH ×3 (06:00→22:00)
[2018-10-29] MEDS: HYDRALAZINE HCL 100MG TABLET PEG SCH ×3 (06:00→22:00)
[2018-10-29] MEDS: PEG GT SCH ×2 (06:12→21:00)
[2018-10-29] MEDS: MINOXIDIL 2.5MG TABLET PEG SCH ×2 (06:12→18:28)
[2018-10-29 08:00] VITALS: BP 147/86
[2018-10-29] MEDS: DOCUSATE SODIUM SUGAR FREE 100MG/10ML UDC PEG SCH (08:21)
[2018-10-29] MEDS: FERROUS SULFATE 325MG TABLET PO SCH ×3 (08:29→18:28)
[2018-10-29] MEDS: CARVEDILOL 6.25 MG TABLET PEG SCH ×2 (08:29→21:00)
[2018-10-29] MEDS: CLONIDINE 0.1MG TABLET PEG SCH ×2 (08:29→21:00)
[2018-10-29] MEDS: POTASSIUM CHLORIDE 20MEQ TABLET SR PO SCH (08:29)
[2018-10-29] MEDS: AMLODIPINE 10MG TABLET PEG SCH (08:29)
[2018-10-29] MEDS: LOSARTAN POTASSIUM 100 MG TABLET PEG SCH (08:29)
[2018-10-29 16:31] VITALS: BP 112/71
[2018-10-29 20:00] VITALS: BP 110/59
[2018-10-29 20:34] VITALS: BP 110/59
[2018-10-29] MEDS: ATORVASTATIN CALCIUM 40MG TABLET PEG SCH (21:00)
== END 2018-10-29 22:30 | DRG 189 ==
LOC: ER 20:11 → 8WST 10-26 00:51 → EDBEDREQDT 10-26 00:56 → EDBEDREQTM 10-26 00:56 → EDBEDREQ 10-26 00:56 → ENRESERV 10-26 16:42
PROVIDERS: ADMIT Internal Medicine Nephrology; ATTEND Internal Medicine Nephrology
DX: J96.20 Acute and chronic respiratory failure, unspecified whether with hypoxia or hypercapnia (principal); I50.43 Acute on chronic combined systolic (congestive) and diastolic (congestive) heart failure; R04.2 Hemoptysis; N17.9 Acute kidney failure, unspecified; I13.0 Hypertensive heart and chronic kidney disease with heart failure and stage 1 through stage 4 chronic kidney disease, or unspecified chronic kidney disease; E78.5 Hyperlipidemia, unspecified; N18.9 Chronic kidney disease, unspecified; I48.91 Unspecified atrial fibrillation; D64.9 Anemia, unspecified; E11.22 Type 2 diabetes mellitus with diabetic chronic kidney disease; E78.00 Pure hypercholesterolemia, unspecified; R13.10 Dysphagia, unspecified; Z93.1 Gastrostomy status; Z79.82 Long term (current) use of aspirin; Z79.899 Other long term (current) drug therapy; Z86.73 Personal history of transient ischemic attack (TIA), and cerebral infarction without residual deficits; Z99.81 Dependence on supplemental oxygen; Z59.0 Homelessness; Z88.0 Allergy status to penicillin
CPT/HCPCS: 36415; 71045; 71250; 83540; 83550; 83605; 83880; 84443; 84484; 87070; 93005; 93970; 94640; 96374; 96375; 99285; A6261; J1650; J1940; J3490; J7050; J7620

== ENCOUNTER 2018-12-23 21:12 | Inpatient (IN) | payer MEDICARE, MEDICAID ==
[~2018-12-23] VITALS: Ht 165.1 cm; Wt 131.5 kg
[2018-12-23 23:15] LABS: BASOPHILS % 0.4 % (0.0-2.0); EOSINOPHILS % 1.6 % (0.0-5.0); HEMATOCRIT. 27.1 % (36.0-48.0); HEMOGLOBIN. 8.9 g/dL (12.0-16.0); LYMPHOCYTES % 24.8 % (20.0-50.0); MEAN CORPUSCULAR HEMOGLOBIN 25.7 pg (28.0-32.0); MEAN CORPUSCULAR VOLUME 78.5 fL (81.0-99.0); MEAN PLATELET VOLUME 10.1 fl (7.4-10.4); MONOCYTES % 7.1 % (2.0-8.0); NEUTROPHILS % 66.1 % (40.0-76.0); PLATELET 233 x1000/uL (130-400); RED BLOOD CELL COUNT 3.45 mill/uL (4.2-5.4); RED CELL DISTRIBUTION WIDTH 16.9 % (11.6-14.6)
[2018-12-23 23:20] LABS: CHLORIDE 108 mEq/L (98-107)
[2018-12-23] MEDS ORDERED: NITROGLYCERIN OINT 1GM/INCH UDPKT TD ONE (23:30)
[2018-12-23] MEDS ORDERED: HYDRALAZINE 20MG/ML VIAL IV NR (23:30)
[2018-12-23 23:35] LABS: PROTHROMBIN TIME 10.5 sec (9.6-11.0)
[2018-12-23] MEDS ORDERED: FUROSEMIDE 20MG/2ML VIAL IVP ONE (23:45)
[2018-12-24] MEDS ORDERED: ONDANSETRON HCL 4MG/2ML INJ IV PRN
[2018-12-24] MEDS ORDERED: HYDROMORPHONE HCL/PF 2MG/ML CPJ IV PRN
[2018-12-24] MEDS ORDERED: ACETAMINOPHEN 325MG TABLET PO PRN
[2018-12-24 00:25] LABS: TOTAL IRON BINDING CAPACITY 186 ug/dL (250-450)
[2018-12-24] MEDS: CLONIDINE 0.1MG TABLET PO PRN ×2 (02:27→22:15)
[2018-12-24] MEDS ORDERED: HYDRALAZINE HCL 25MG TABLET PO SCH (06:45)
[2018-12-24] MEDS ORDERED: HYDRALAZINE 20MG/ML VIAL IV PRN (07:15)
[2018-12-24] MEDS ORDERED: LOSARTAN POTASSIUM 50 MG TABLET PO SCH (09:00)
[2018-12-24] MEDS ORDERED: BUSPIRONE HCL 5MG TABLET PO SCH (09:00)
[2018-12-24 11:00] VITALS: BP 144/111
[2018-12-24] MEDS: FUROSEMIDE 40MG/4ML VIAL IV SCH (11:49)
[2018-12-24] MEDS: MINOXIDIL 2.5MG TABLET PO SCH (11:49)
[2018-12-24] MEDS: FERROUS SULFATE 325MG TABLET PO SCH ×3 (11:50→17:51)
[2018-12-24] MEDS: PANTOPRAZOLE 40MG DR TABLET PO SCH (11:50)
[2018-12-24 12:00] VITALS: BP 144/111
[2018-12-24] MEDS: HYDRALAZINE HCL 50MG TABLET PO SCH (15:41)
[2018-12-24 16:00] VITALS: BP 121/90
[2018-12-24 20:00] VITALS: BP 170/89
[2018-12-24] MEDS: BUSPIRONE HCL 5MG TABLET PO SCH (20:56)
[2018-12-24] MEDS: ATORVASTATIN CALCIUM 40MG TABLET PO SCH (20:56)
[2018-12-24] MEDS: ENOXAPARIN 40MG/0.4ML SYR SUBCUT SCH (20:57)
[2018-12-24] MEDS: IPRATROPIUM/ALBUTEROL 0.5-3(2.5)MG/3ML NEB INH SCH (21:18)
[2018-12-25] MEDS: HYDRALAZINE HCL 50MG TABLET PO SCH ×4 (00:08→22:04)
[2018-12-25 00:45] VITALS: BP 129/91
[2018-12-25] MEDS: IPRATROPIUM/ALBUTEROL 0.5-3(2.5)MG/3ML NEB INH SCH ×4 (01:30→21:13)
[2018-12-25 05:33] VITALS: BP 134/89
[2018-12-25] MEDS: PANTOPRAZOLE 40MG DR TABLET PO SCH (05:44)
[2018-12-25 08:00] VITALS: BP 155/75
[2018-12-25] MEDS: BUSPIRONE HCL 5MG TABLET PO SCH ×2 (09:36→22:03)
[2018-12-25] MEDS: MINOXIDIL 2.5MG TABLET PO SCH (09:36)
[2018-12-25] MEDS: FERROUS SULFATE 325MG TABLET PO SCH ×3 (09:36→18:00)
[2018-12-25] MEDS: FUROSEMIDE 40MG/4ML VIAL IV SCH (09:36)
[2018-12-25] MEDS: ENOXAPARIN 40MG/0.4ML SYR SUBCUT SCH ×2 (09:37→22:03)
[2018-12-25 12:00] VITALS: BP 157/104
[2018-12-25 16:00] VITALS: BP 170/100
[2018-12-25] MEDS: CLONIDINE 0.1MG TABLET PO PRN (18:01)
[2018-12-25 20:00] VITALS: BP 146/83
[2018-12-25] MEDS: ATORVASTATIN CALCIUM 40MG TABLET PO SCH (22:03)
[2018-12-26] VITALS (7 sets, daily range): BP systolic 115–159; BP diastolic 68–98
[2018-12-26] MEDS: IPRATROPIUM/ALBUTEROL 0.5-3(2.5)MG/3ML NEB INH SCH ×3 (01:51→12:00)
[2018-12-26] MEDS: PANTOPRAZOLE 40MG DR TABLET PO SCH (06:57)
[2018-12-26] MEDS: FERROUS SULFATE 325MG TABLET PO SCH ×3 (06:57→19:38)
[2018-12-26] MEDS: HYDRALAZINE HCL 50MG TABLET PO SCH ×3 (07:00→21:26)
[2018-12-26] MEDS: FUROSEMIDE 40MG/4ML VIAL IV SCH ×2 (09:00→09:07)
[2018-12-26] MEDS: MINOXIDIL 2.5MG TABLET PO SCH (09:06)
[2018-12-26] MEDS: ENOXAPARIN 40MG/0.4ML SYR SUBCUT SCH ×2 (09:07→20:48)
[2018-12-26] MEDS: BUSPIRONE HCL 5MG TABLET PO SCH ×2 (09:07→20:48)
[2018-12-26] MEDS: ATORVASTATIN CALCIUM 40MG TABLET PO SCH (20:48)
== END 2018-12-26 21:55 | DRG 682 ==
LOC: ER 21:12 → 5WST 23:45 → EDBEDREQTM 23:52 → EDBEDREQ 23:52 → ENRESERV 12-24 10:27
PROVIDERS: ADMIT Internal Medicine Nephrology; ATTEND Internal Medicine Nephrology
DX: N17.9 Acute kidney failure, unspecified (principal); I50.23 Acute on chronic systolic (congestive) heart failure; I13.0 Hypertensive heart and chronic kidney disease with heart failure and stage 1 through stage 4 chronic kidney disease, or unspecified chronic kidney disease; E44.1 Mild protein-calorie malnutrition; N18.9 Chronic kidney disease, unspecified; D63.1 Anemia in chronic kidney disease; J44.9 Chronic obstructive pulmonary disease, unspecified; I48.91 Unspecified atrial fibrillation; E66.01 Morbid (severe) obesity due to excess calories; E11.22 Type 2 diabetes mellitus with diabetic chronic kidney disease; E78.00 Pure hypercholesterolemia, unspecified; E78.5 Hyperlipidemia, unspecified; Z86.73 Personal history of transient ischemic attack (TIA), and cerebral infarction without residual deficits; Z88.8 Allergy status to other drugs, medicaments and biological substances; Z88.0 Allergy status to penicillin; Z79.84 Long term (current) use of oral hypoglycemic drugs
CPT/HCPCS: 36415; 71045; 83540; 83550; 83605; 83880; 84484; 87070; 93005; 93306; 94640; 96374; 96375; 99285; J0360; J1650; J1940; J7620